=== PATIENT | female | born 1950 | race Caucasian/White ===

== ENCOUNTER 2018-06-21 11:37 | Observation (INO) | payer MEDICARE ==
[~2018-06-21] VITALS: Ht 172.7 cm; Wt 97.1 kg
--- NOTE | 2018-06-21 11:41 | ER Report ---
History and Physical Time Seen By MD: 11:41 HPI/ROS CHIEF COMPLAINT: Left hip pain HISTORY OF PRESENT ILLNESS: 68-year-old female patient presents to emergency room with complaint of left hip pain. 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 Patient states she landed on her left hip. Patient states she has significant amounts of pain. She states pain is worse with coughing or with movement. Patient denies any nausea, vomiting or diarrhea. She denies hitting her head or loss consciousness. Patient states that she has no numbness tingling to her lower leg. Patient states that she has not taken any medication for this. She states she was unable to get up and EMS was contacted which brought her here to the emergency room. REVIEW OF SYSTEMS: Respiratory: No cough, no dyspnea. Cardiovascular: No chest pain, no palpitations. Gastrointestinal: No vomiting, no abdominal pain. Musculoskeletal: As noted above Allergies: Coded Allergies: Penicillins (Verified Allergy, Severe, ANAPHYLAXIS, 06/21/18) acetaminophen (Verified Allergy, Severe, GAURAV, 06/21/18) hydrocodone (Verified Allergy, Severe, GAURAV, 06/21/18) Home Meds Reported Medications Multivitamin (MULTIVITAMINS) 1 Each Capsule, 1 EACH PO DAILY, CAPSULE 06/21/18 Past Medical/Surgical History Patient has a past medical history of chronic back pain. Patient has surgical history of appendectomy, hysterectomy. Reviewed Nurses Notes: Yes Constitutional Vital Sign - Last 24 Hours 06/21/18 06/21/18 06/21/18 06/21/18 11:38 11:38 11:42 11:47 Temp 98.0 Pulse 75 80 77 Resp 16 B/P (MAP) 109/84 109/84 (92) Pulse Ox 93 93 92 O2 Delivery Room Air 06/21/18 06/21/18 06/21/18 11:52 11:57 12:57 Pulse 77 75 72 Pulse Ox 91 91 Physical Exam General Appearance: The patient is alert, has no immediate need for airway protection and no current signs of toxicity. Respiratory: Chest is non tender, lungs are clear to auscultation. Cardiac: regular rate and rhythm Gastrointestinal: Abdomen is soft and non tender, no masses, bowel sounds normal. Musculoskeletal: Neck: Neck is supple and non tender. Extremities have full range of motion and are non tender. Patient had no obvious discomfort with palpation of the iliac crest, the left femur, or palpation of the left hip. Skin: No rashes or lesions. DIFFERENTIAL DIAGNOSIS: After history and physical exam differential diagnosis was considered for fracture, contusion, dislocation. Medical Decision Making Data Points Result Diagram: 06/21/18 1241 06/21/18 1241 Laboratory Hematology Test 06/21/18 12:41 06/21/18 12:53 Red Blood Count 4.90 M/uL (4.17-5.56) Mean Corpuscular Volume 93.6 fL (80.0-96.0) Mean Corpuscular Hemoglobin 31.2 pg (26.0-33.0) Mean Corpuscular Hemoglobin Concent 33.3 g/dL (32.0-36.0) Red Cell Distribution Width 13.0 % (11.5-14.5) Mean Platelet Volume 7.9 fL (7.2-11.1) Neutrophils (%) (Auto) 76.5 % (39.4-72.5) Lymphocytes (%) (Auto) 12.2 % (17.6-49.6) Monocytes (%) (Auto) 4.7 % (4.1-12.4) Eosinophils (%) (Auto) 6.1 % (0.4-6.7) Basophils (%) (Auto) 0.5 % (0.3-1.4) Nucleated RBC Relative Count (auto) 0.0 /100WBC Neutrophils # (Auto) 11.4 K/uL (2.0-7.4) Lymphocytes # (Auto) 1.8 K/uL (1.3-3.6) Monocytes # (Auto) 0.7 K/uL (0.3-1.0) Eosinophils # (Auto) 0.9 K/uL (0.0-0.5) Basophils # (Auto) 0.1 K/uL (0.0-0.1) Nucleated RBC Absolute Count (auto) 0.00 K/uL Sodium Level 137 mmol/L (137-145) Potassium Level 4.2 mmol/L (3.5-5.0) Chloride Level 104 mmol/L (98-107) Carbon Dioxide Level 26 mmol/L (22-31) Blood Urea Nitrogen 15 mg/dl (7-18) Creatinine 0.70 mg/dl (0.52-1.04) Glomerular Filtration Rate Calc > 60.0 Random Glucose 88 mg/dl (75-110) Calcium Level 9.3 mg/dl (8.4-10.2) Total Bilirubin 0.6 mg/dl (0.2-1.3) Aspartate Amino Transf (AST/SGOT) 31 U/L (0-35) Alanine Aminotransferase (ALT/SGPT) 29 U/L (0-56) Alkaline Phosphatase 70 U/L (0-126) Total Protein 6.8 g/dl (6.3-8.2) Albumin 4.1 g/dl (3.5-5.0) Prothrombin Time 12.9 seconds (12.0-14.4) Prothromb Time International Ratio 0.97 Activated Partial Thromboplast Time 23 seconds (23-35) Chemistry Test 06/21/18 12:41 06/21/18 12:53 White Blood Count 14.9 k/uL (4.5-11.0) Red Blood Count 4.90 M/uL (4.17-5.56) Hemoglobin 15.3 g/dL (12.0-16.0) Hematocrit 45.9 % (34.0-47.0) Mean Corpuscular Volume 93.6 fL (80.0-96.0) Mean Corpuscular Hemoglobin 31.2 pg (26.0-33.0) Mean Corpuscular Hemoglobin Concent 33.3 g/dL (32.0-36.0) Red Cell Distribution Width 13.0 % (11.5-14.5) Platelet Count 308 K/uL (150-450) Mean Platelet Volume 7.9 fL (7.2-11.1) Neutrophils (%) (Auto) 76.5 % (39.4-72.5) Lymphocytes (%) (Auto) 12.2 % (17.6-49.6) Monocytes (%) (Auto) 4.7 % (4.1-12.4) Eosinophils (%) (Auto) 6.1 % (0.4-6.7) Basophils (%) (Auto) 0.5 % (0.3-1.4) Nucleated RBC Relative Count (auto) 0.0 /100WBC Neutrophils # (Auto) 11.4 K/uL (2.0-7.4) Lymphocytes # (Auto) 1.8 K/uL (1.3-3.6) Monocytes # (Auto) 0.7 K/uL (0.3-1.0) Eosinophils # (Auto) 0.9 K/uL (0.0-0.5) Basophils # (Auto) 0.1 K/uL (0.0-0.1) Nucleated RBC Absolute Count (auto) 0.00 K/uL Glomerular Filtration Rate Calc > 60.0 Calcium Level 9.3 mg/dl (8.4-10.2) Total Bilirubin 0.6 mg/dl (0.2-1.3) Aspartate Amino Transf (AST/SGOT) 31 U/L (0-35) Alanine Aminotransferase (ALT/SGPT) 29 U/L (0-56) Alkaline Phosphatase 70 U/L (0-126) Total Protein 6.8 g/dl (6.3-8.2) Albumin 4.1 g/dl (3.5-5.0) Prothrombin Time 12.9 seconds (12.0-14.4) Prothromb Time International Ratio 0.97 Activated Partial Thromboplast Time 23 seconds (23-35) Coagulation Test 06/21/18 12:53 Prothrombin Time 12.9 seconds Prothromb Time International Ratio 0.97 Activated Partial Thromboplast Time 23 seconds EKG/Imaging Imaging Exam type: CHEST SINGLE AP History: fall with pain Comparison: None. Findings: Patient is slumped over towards the right and slightly rotated. No definite evidence of pulmonary consolidation seen. No evidence of overt pulmonary edema or pleural effusions. The cardiac silhouette is normal in size. Mild prominence of the right cardiophrenic angle may represent a prominent epicardial fat pad IMPRESSION: 1. No acute cardiopulmonary process is seen Report Dictated By: Alma Yuan MD at 06/21/2018 1:27 PM Report E-Signed By: Alma Yuan MD at 06/21/2018 1:28 PM Exam type: HIP LEFT History: Fall with left hip pain Comparison: None. Findings: AP view the pelvis and crosstable lateral view of the left hip are submitted there is a fracture through the superior pubic ramus on the left and a fracture through the inferior pubic ramus on the left is suspected. No definite fracture of the left hip is seen on this limited study IMPRESSION: 1. Fracture to the superior pubic ramus on the left and probable fracture through the inferior pubic ramus on the left as well No definite left hip fracture seen Report Dictated By: Alma Yuan MD at 06/21/2018 1:28 PM Report E-Signed By: Alma Yuan MD at 06/21/2018 1:30 PM ED Course/Re-evaluation ED Course Patient was admitted to an exam room, history and physical were obtained. Differential diagnoses were considered. On examination lungs are clear, heart is regular, abdomen soft nontender. Patient had no obvious tenderness to the left hip, or the iliac crest. A pelvis x-ray was done. A CBC, CMP, chest x-ray were done. Lab results were unremarkable except for the patient did have an elevated white count with a left shift. X-ray did show a nondisplaced superior and inferior pubic ramus fracture on the left side. I discussed the findings with patient. I discussed the case with Dr. Abreu, orthopedic surgeon. He states that she can ambulate bearing is much weight on that leg she can tolerate. We did attempt to get the patient up to ambulate. She was unable to tolerate even getting up to her feet. I discussed the case with Dr. Martinez, [facility], who agreed to accept the patient for admission. Decision to Disposition Date: Jun 21, 2018 Decision to Disposition Time: 15:06 Depart Departure Latest Vital Signs Vital Signs Date Time Temp Pulse Resp B/P (MAP) Pulse Ox O2 Delivery O2 Flow Rate FiO2 06/21/18 12:57 72 91 06/21/18 11:38 109/84 (92) 06/21/18 11:38 98.0 16 Room Air Impression: Primary Impression: Pubic ramus fracture Condition: Condition Unchanged Disposition: Admitted from ER Problem Qualifiers Primary Impression: Pubic ramus fracture Encounter type: initial encounter Fracture type: closed Laterality: left Qualified Codes: S32.592A - Other specified fracture of left pubis, initial encounter for closed fracture KOBI SHAH Jun 21, 2018 11:41
[2018-06-21] MEDS ORDERED: MULT1CAP59 PO (11:48)
[2018-06-21 12:53] LABS: PLATELET COUNT, AUTOMATED 308 K/uL (150-450)
[2018-06-21 13:14] LABS: INR 0.97
--- NOTE | 2018-06-21 13:32 | RADIOLOGY IMAGING REPORT ---
[place] [facility] [place] NAME: Kesha Reyes : 1950 MR: [id number] V: [id number] EXAM DATE: [id number] ORDERING PHYSICIAN: KOBI SHAH TECHNOLOGIST: Location: [facility] [place] Patient: Kesha Reyes : 1950 Visit/Account:[id number] Date of Sevice: 06/21/2018 Exam type: CHEST SINGLE AP History: fall with pain Comparison: None. Findings: Patient is slumped over towards the right and slightly rotated. No definite evidence of pulmonary co nsolidation seen. No evidence of overt pulmonary edema or pleural effusions. The cardiac silhouette is normal in size. Mild prominence of the right cardiophrenic angle may represent a prominent epica rdial fat pad IMPRESSION: 1. No acute cardiopulmonary process is seen Report Dictated By: Alma Yuan MD at 06/21/2018 1:27 PM Report E-Signed By: Alma Yuan MD at 06/21/2018 1:28 PM WSN:[email or web address]
--- NOTE | 2018-06-21 13:35 | RADIOLOGY IMAGING REPORT ---
FACILITY: [facility] PATIENT NAME: Kesha Reyes : 1950 MR: [id number] V: [id number] EXAM DATE: ORDERING PHYSICIAN: KOBI SHAH TECHNOLOGIST: Location: [facility] Patient: Kesha Reyes : 1950 Visit/Account:[id number] Date of Sevice: 06/21/2018 Exam type: HIP LEFT History: Fall with left hip pain Comparison: None. Findings: AP view the pelvis and crosstable lateral view of the left hip are submitted there is a fracture thro ugh the superior pubic ramus on the left and a fracture through the inferior pubic ramus on the left is suspected. No definite fracture of the left hip is seen on this limited study IMPRESSION: 1. Fracture to the superior pubic ramus on the left and probable fracture through the inferior pubic ramus on the left as well No definite left hip fracture seen Report Dictated By: Alma Yuan MD at 06/21/2018 1:28 PM Report E-Signed By: Alma Yuan MD at 06/21/2018 1:30 PM WSN:[email or web address]
[2018-06-21] MEDS ORDERED: IBUPROFEN 800 MG TAB PO ONE (15:20)
[2018-06-21 15:49] VITALS: BP 157/85
--- NOTE | 2018-06-21 15:50 | History & Physical ---
History of Present Illness Chief Complaint left hip pain History of Present Illness 68-year-old female patient presented to emergency room with complaint of left hip pain. 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 Patient states she landed on her left hip. Patient states she has significant amounts of pain and is unable to ambulate. She was brought by ambulance to emergency room. She had x-ray, which showed fracture to pubic ramus. She was recommended for admission. History Home Meds Reported Medications Multivitamin (MULTIVITAMINS) 1 Each Capsule, 1 EACH PO DAILY, CAPSULE 06/21/18 Allergies: Coded Allergies: Penicillins (Verified Allergy, Severe, ANAPHYLAXIS, 06/21/18) acetaminophen (Verified Allergy, Severe, GAURAV, 06/21/18) hydrocodone (Verified Allergy, Severe, GAURAV, 06/21/18) Review of Systems All Systems Reviewed/Normal: Yes, Except as Noted Musculoskeletal: Pain (left hip pain) Exam Vital Signs Vital Signs Date Time Temp Pulse Resp B/P (MAP) Pulse Ox O2 Delivery O2 Flow Rate FiO2 06/21/18 12:57 72 91 06/21/18 11:38 109/84 (92) 06/21/18 11:38 98.0 16 Room Air General Appearance: Alert, Awake, No Acute Distress, Afebrile Neuro: No Gross deficits Cardiovascular: Regular Rate and Rhythm Respiratory: No Respiratory Distress, Clear to Auscultation GI: Abd Soft and Non-Tender Extremities: Warm, Perfused; No Edema Psych: Alert & Oriented X3, Appropriate Mood & Affect Medical Decision Making Data Points Result Diagram: 06/21/18 1241 06/21/18 1241 EKG / Imaging Imaging Exam type: CHEST SINGLE AP History: fall with pain Comparison: None. Findings: Patient is slumped over towards the right and slightly rotated. No definite evidence of pulmonary consolidation seen. No evidence of overt pulmonary edema or pleural effusions. The cardiac silhouette is normal in size. Mild prominence of the right cardiophrenic angle may represent a prominent epicardial fat pad IMPRESSION: 1. No acute cardiopulmonary process is seen Report Dictated By: Alma Yuan MD at 06/21/2018 1:27 PM Report E-Signed By: Alma Yuan MD at 06/21/2018 1:28 PM Exam type: HIP LEFT History: Fall with left hip pain Comparison: None. Findings: AP view the pelvis and crosstable lateral view of the left hip are submitted there is a fracture through the superior pubic ramus on the left and a fracture through the inferior pubic ramus on the left is suspected. No definite fracture of the left hip is seen on this limited study IMPRESSION: 1. Fracture to the superior pubic ramus on the left and probable fracture through the inferior pubic ramus on the left as well No definite left hip fracture seen Report Dictated By: Alma Yuan MD at 06/21/2018 1:28 PM Report E-Signed By: Alma Yuan MD at 06/21/2018 1:30 PM Assessment and Plan Problems: (1) Pubic ramus fracture Status: Acute Assessment & Plan: She presented with left hip pain. She has fracture to left superior ramus and probable fracture to the inferior pubic ramus. Ortho was consulted in the emergency department, and report this is a non-operable fracture. She requests to only be placed on Ibuprofen for pain. She will get PT/OT evaluation. Venous Thromboembolism Antithrombotics Is Pt On Any Antithrombotics?: Yes Exam Sepsis Risk: No Definite Risk Problem Qualifiers (1) Pubic ramus fracture: Encounter type: initial encounter Fracture type: closed Laterality: left Qualified Codes: S32.592A - Other specified fracture of left pubis, initial encounter for closed fracture SARAH CERON INSULATION [employer]ARD [employer] SAW OPERATOR Jun 21, 2018 15:49
[2018-06-21 19:35] VITALS: BP 136/89
[2018-06-21] MEDS: IBUPROFEN 800 MG TAB PO PRN (20:32)
[2018-06-22] MEDS: IBUPROFEN 800 MG TAB PO PRN ×3 (04:13→20:10)
[2018-06-22 06:54] VITALS: BP 92/52
[2018-06-22] MEDS: ENOXAPARIN 40 MG/0.4ML SYR SC SCH (08:20)
--- NOTE | 2018-06-22 09:44 | Hospitalist Progress Note ---
Subjective Progress Notes Subjective She was admitted with pubic ramus fracture. She had no acute events overnight. Patient Complains of: Cardiovascular: No: Chest Pain Respiratory: No: Shortness of Breath Physical Exam Vital Signs Date Time Temp Pulse Resp B/P (MAP) Pulse Ox O2 Delivery O2 Flow Rate FiO2 06/22/18 06:54 89 Room Air 06/22/18 06:54 98.4 71 20 92/52 (65) General Appearance: Alert, Awake, No Acute Distress, Afebrile Neuro: No Gross deficits Cardiovascular: Regular Rate and Rhythm Respiratory: No Respiratory Distress, Clear to Auscultation GI: Soft and Non-Tender Extremities: Warm, Perfused; No Edema Psych: Alert & Oriented X3, Appropriate Mood & Affect Result Diagram: 06/21/18 1241 06/21/18 1241 Assessment and Plan Problems: (1) Pubic ramus fracture Status: Acute Assessment & Plan: She presented with left hip pain. She has fracture to left superior ramus and probable fracture to the inferior pubic ramus. Ortho was consulted in the emergency department, and report this is a non-operable fracture. She can be WBAT. She requests to only be placed on Ibuprofen for pain. She will get PT/OT evaluation today. Exam Sepsis Risk: No Definite Risk Problem Qualifiers (1) Pubic ramus fracture: Encounter type: initial encounter Fracture type: closed Laterality: left Qualified Codes: S32.592A - Other specified fracture of left pubis, initial encounter for closed fracture SARAH CERONP Jun 22, 2018 09:44
[2018-06-22 10:50] VITALS: BP 108/62
[2018-06-22] MEDS: LIDOCAINE 5% PATCH TP SCH (11:10)
--- NOTE | 2018-06-22 13:18 | NUR ---
Physical Therapy Impression PT eval complete. Pt lives alone in a single level home with 3 stairs with rails to enter plus 1 platform step. Pt reports independence with functional mobility prior to pelvic fx. Currently Pt requires Mod A x2 for supine>sit, Max Ax2 for sit>supine, Max A x2 from an elevated bed to stand, and is unable to ambulate with use of a RW. Strongly recommend acute rehab as Pt is unable to perform any functional mobility without significant assistance. Physical Therapy Goals 1. Mod I bed mobility. 2. Mod I transfers. 3. Mod I gait x 50' with RW. 4. Ascend/descend 3 stairs SBA. 5. Ascend/descend 1 platform step SBA using RW. Patient's Goals
--- NOTE | 2018-06-22 13:20 | NUR ---
Occupational Therapy Impression Co-evaluation completed with PT. Pt. would benefit from OT services 5x/week to increase independence in ADL activities. OT recommends pt. d/c to ARU for further rehab as pt. resides alone. Occupational Therapy Goals 1. Pt. to perform dressing activities with Min A. 2. Pt. to perform showering activities with Min A. 3. Pt. to perform toileting activities with Min A. 4. Pt. to perform grooming activities with I. Patient's Goal
[2018-06-22 14:51] VITALS: BP 120/74
[2018-06-22 19:30] VITALS: BP 118/59
[2018-06-22] MEDS: PATCH REMOVAL 1 EA TP SCH (21:00)
[2018-06-23] MEDS: IBUPROFEN 800 MG TAB PO PRN (05:34)
--- NOTE | 2018-06-23 06:57 | Hospitalist Progress Note ---
Subjective Progress Notes Subjective No new complaints. Physical Exam Vital Signs Date Time Temp Pulse Resp B/P (MAP) Pulse Ox O2 Delivery O2 Flow Rate FiO2 06/23/18 03:23 92 06/23/18 03:21 16 06/22/18 23:31 Room Air 06/22/18 19:30 97.7 81 118/59 (78) Intake and Output 06/23/18 07:00 Intake Total 240 ml Balance 240 ml Intake Oral 240 ml # Voids 1 # Bowel Movements 1 General Appearance: Alert, Awake, No Acute Distress Cardiovascular: Regular Rate and Rhythm GI: Soft and Non-Tender Extremities: Warm, Perfused Psych: Appropriate Mood & Affect Result Diagram: 06/21/18 1241 06/21/18 1241 Assessment and Plan Problems: (1) Pubic ramus fracture Status: Acute Assessment & Plan: She presented with left hip pain. She has fracture to left superior ramus and probable fracture to the inferior pubic ramus. Ortho was consulted in the emergency department, and report this is a non-operable fracture. She can be WBAT. She requests to only be placed on Ibuprofen for pain. She is being treated by PT/OT. She continues to have pain. Time Spent on Plan of Care: < 30 min Exam Sepsis Risk: No Definite Risk Problem Qualifiers (1) Pubic ramus fracture: Encounter type: initial encounter Fracture type: closed Laterality: left Qualified Codes: S32.592A - Other specified fracture of left pubis, initial encounter for closed fracture JULIANA HARRIS MD Jun 23, 2018 06:57
[2018-06-23 07:10] VITALS: BP 96/53
[2018-06-23] MEDS: LIDOCAINE 5% PATCH TP SCH (08:23)
[2018-06-23] MEDS: ENOXAPARIN 40 MG/0.4ML SYR SC SCH (08:23)
--- NOTE | 2018-06-23 10:35 | NUR ---
Physical Therapy Impression Pt with improved tolerance to mobility today. Panda for bed mobility, HOB raised for supine to sit. Increased pain with movement of L) LE. PT instructed pt in STS transfer with EZ lift, pt required min-modA to rise to insurance claims clerk lift with good tolerance once up. Pt reported lightheadedness and BP was 67/45. PT assisted pt back to supine position, BP returned to WNL and RN notified. Rec Acute rehab at d/c d/t high level of assistance for all mobility. Physical Therapy Goals 1. Mod I bed mobility. 2. Mod I transfers. 3. Mod I gait x 50' with RW. 4. Ascend/descend 3 stairs SBA. 5. Ascend/descend 1 platform step SBA using RW. Patient's Goals
[2018-06-23 10:45] VITALS: BP 67/45
[2018-06-23 10:50] VITALS: BP 102/63
[2018-06-23] MEDS: KETOROLAC 30 MG/ML VIAL IVP PRN ×2 (13:39→19:29)
[2018-06-23 15:05] VITALS: BP 93/59
[2018-06-23 19:25] VITALS: BP 109/63
[2018-06-23] MEDS: PATCH REMOVAL 1 EA TP SCH (19:37)
[2018-06-23 23:09] VITALS: BP 117/62
[2018-06-24 02:40] VITALS: BP 98/61
[2018-06-24] MEDS: IBUPROFEN 800 MG TAB PO PRN ×2 (02:44→11:18)
[2018-06-24 06:58] VITALS: BP 111/67
[2018-06-24] MEDS ORDERED: IBUP800T37 PO (08:42)
[2018-06-24] MEDS ORDERED: LIDO700A19 TP (08:42)
[2018-06-24] MEDS ORDERED: ENOX40DI9 SC (08:42)
--- NOTE | 2018-06-24 08:50 | Hospitalist Depart ---
Discharge Summary Reason for Hosp/Final Diag: (1) Pubic ramus fracture Status: Acute Hospital Course & Plan: She presented with left hip pain. She was found to have fracture of the left superior ramus and probable fracture to the inferior pubic ramus. Orthopedics was consulted in the emergency department and reported this was a nonsurgical fracture. She can be weight bearing as tolerated. She requested to use only Ibuprofen for pain. She has also used topical lidocaine patches intermittently. She was evaluated/treated by PT/OT. They recommended she be transferred to an acute rehabilitation facility as she was requiring fairly intensive therapy. Her follow up will be pending her progress with rehab. Departure Weight (Pounds): 214 Result Diagram: 06/24/18 0512 06/21/18 1241 Item Value Date Time White Blood Count 14.9 k/uL H 06/21/18 1241 Hemoglobin 15.3 g/dL 06/21/18 1241 Hematocrit 45.9 % 06/21/18 1241 Platelet Count 308 K/uL 06/21/18 1241 Prothrombin Time 12.9 seconds 06/21/18 1253 Prothromb Time International Ratio 0.97 06/21/18 1253 Activated Partial Thromboplast Time 23 seconds 06/21/18 1253 Sodium Level 137 mmol/L 06/21/18 1241 Potassium Level 4.2 mmol/L 06/21/18 1241 Chloride Level 104 mmol/L 06/21/18 1241 Carbon Dioxide Level 26 mmol/L 06/21/18 1241 Blood Urea Nitrogen 15 mg/dl 06/21/18 1241 Creatinine 0.70 mg/dl 06/21/18 1241 Glomerular Filtration Rate Calc > 60.0 06/21/18 1241 Random Glucose 88 mg/dl 06/21/18 1241 Calcium Level 9.3 mg/dl 06/21/18 1241 Total Bilirubin 0.6 mg/dl 06/21/18 1241 Aspartate Amino Transf (AST/SGOT) 31 U/L 06/21/18 1241 Alanine Aminotransferase (ALT/SGPT) 29 U/L 06/21/18 1241 Alkaline Phosphatase 70 U/L 06/21/18 1241 Total Protein 6.8 g/dl 06/21/18 1241 Albumin 4.1 g/dl 06/21/18 1241 Imaging PATIENT NAME: Kesha Reyes : 1950 MR: [id number] V: [id number] EXAM DATE: [id number] ORDERING PHYSICIAN: KOBI SHAH TECHNOLOGIST: Location: [facility] - [place] Patient: Kesha Reyes : 1950 Visit/Account:[id number] Date of Sevice: 06/21/2018 Exam type: HIP LEFT History: Fall with left hip pain Comparison: None. Findings: AP view the pelvis and crosstable lateral view of the left hip are submitted there is a fracture through the superior pubic ramus on the left and a fracture through the inferior pubic ramus on the left is suspected. No definite fracture of the left hip is seen on this limited study IMPRESSION: 1. Fracture to the superior pubic ramus on the left and probable fracture through the inferior pubic ramus on the left as well No definite left hip fracture seen Report Dictated By: Alma Yuan MD at 06/21/2018 1:28 PM Report E-Signed By: Alma Yuan MD at 06/21/2018 1:30 PM WSN:[email or web address] PATIENT NAME: Kesha Reyes : 1950 MR: [id number] V: [id number] EXAM DATE: [id number] ORDERING PHYSICIAN: KOBI SHAH TECHNOLOGIST: Location: [facility] - [place] Patient: Kesha Reyes : 1950 Visit/Account:[id number] Date of Sevice: 06/21/2018 Exam type: CHEST SINGLE AP History: fall with pain Comparison: None. Findings: Patient is slumped over towards the right and slightly rotated. No definite evidence of pulmonary consolidation seen. No evidence of overt pulmonary edema or pleural effusions. The cardiac silhouette is normal in size. Mild prominence of the right cardiophrenic angle may represent a prominent epicardial fat pad IMPRESSION: 1. No acute cardiopulmonary process is seen Report Dictated By: Alma Yuan MD at 06/21/2018 1:27 PM Report E-Signed By: Alma Yuan MD at 06/21/2018 1:28 PM WSN:[email or web address] Condition: Improved Discharge: Rehab Facility PT/OT Follow Up For: PT For Strengthening, OT Evaluation and Treat Time Spent: > 30 min Discharge Instructions Home Meds Active Scripts Lidocaine (Lidocaine) 5 % Adh..patch, 1 EACH TP QDAY for 14 Days, #14 PATCH.24H 0 Refills Prov:LISSET HARRIS MD 06/24/18 Ibuprofen (IBUPROFEN) 800 Mg Tablet, 800 MG PO Q8H PRN for PAIN for 30 Days, #60 TAB 0 Refills Prov:LISSET HARRIS MD 06/24/18 Enoxaparin Sodium (ENOXAPARIN SODIUM) 40 Mg/0.4 Ml Disp.syrin, 40 MG SC Q24H for 30 Days, #30 SYR 0 Refills Prov:LISSET HARRIS MD 06/24/18 Reported Medications Multivitamin (MULTIVITAMINS) 1 Each Capsule, 1 EACH PO DAILY, CAPSULE 06/21/18 Diet: Regular Activity: As Tolerated (as outlined by PT/OT) Special Instructions: Copies to: DENIS ARORAP ; Venous Thromboembolism Antithrombotics Is Pt On Any Antithrombotics?: Yes Problem Qualifiers (1) Pubic ramus fracture: Encounter type: initial encounter Fracture type: closed Laterality: left Qualified Codes: S32.592A - Other specified fracture of left pubis, initial encounter for closed fracture LISSET HARRIS MD Jun 24, 2018 08:50
[2018-06-24] MEDS: ENOXAPARIN 40 MG/0.4ML SYR SC SCH (09:07)
[2018-06-24] MEDS: LIDOCAINE 5% PATCH TP SCH (09:07)
[2018-06-25] MEDS ORDERED: INFLUENZA VIRUS VAC 0.5ML SYR IM ONLY ONE (09:00)
--- NOTE | 2018-06-25 13:27 | NUR ---
OCCUPATIONAL THERAPY Dressing Assistance: Dressing Aid Required: Bathing Assistance: Bathing Equipment: Home Assessment: Non Completed Feeding Assistance: Feeding Specialized Equipment: Toilet Use: Verbalizes Needs: Yes Understands Precautions: Yes Cooperative: Yes Family Teaching: No Occupational Therapy Comment: Pt. to transfer to No CO. ARU for continued rehab.
== END 2018-06-24 08:43 ==
LOC: ER 12:08 → MED 15:09 → INTOOBSV 15:09
PROVIDERS: ADMIT Internal Medicine; ATTEND Internal Medicine
DX: S32.592A Other specified fracture of left pubis, initial encounter for closed fracture (principal); G89.29 Other chronic pain
CPT/HCPCS: 36415; 71045; 73502; 85014; 85018; 85025; 85610; 85730; 96372; 97162; 97166; 97530; 99284; A9270; G0378; J1650; J1885; 82040; 82247; 82310; 82374; 82435; 82565; 82947; 84075; 84132; 84155; 84295; 84450; 84460; 84520

== ENCOUNTER → 2018-06-21 | Outpatient (CLI) | payer MEDICARE ==
[~2018-06-21] MED LIST: ENOX40DI9 SC; IBUP800T37 PO; LIDO700A19 TP; MULT1CAP59 PO
== END ==
LOC: AMB 11:06
PROVIDERS: ATTEND Nurse Practitioner
DX: M25.552 Pain in left hip (principal); R10.9 Unspecified abdominal pain; W19.XXXA Unspecified fall, initial encounter
CPT/HCPCS: A0425; A0427

== ENCOUNTER → 2018-07-11 | Outpatient (CLI) | payer MEDICARE ==
--- NOTE | 2018-07-11 17:06 | RADIOLOGY IMAGING REPORT ---
FACILITY: [facility] PATIENT NAME: Kesah Reyes : 1950 MR: [id number] V: [id number] EXAM DATE: ORDERING PHYSICIAN: BUD MEADOWS TECHNOLOGIST: [place] [facility] [place] Patient: Kesha Reyes : 1950 Visit/Account:[id number] Date of Sevice: 07/11/2018 PELVIS COMPARISON: Left hip radiographs 06/21/2018. HISTORY: Left superior and inferior pubic rami fracture three weeks ago TECHNIQUE: One AP view of the pelvis FINDINGS: BONES: Subacute transverse fractures of the left superior and inferior pubic rami are noted. There is no visible callus or bony bridging. Based on this single view study, there is about a half bone s haft width of displacement of the superior pubic ramus fracture, new from previous. There is no sign ificant displacement of the inferior pubic ramus fracture, stable. No other fractures are identified in the pelvis or either hip. Lower lumbar spine degenerative changes, incompletely imaged. The pub ic symphysis is intact. SI JOINTS: Intact and unremarkable. SOFT TISSUES: Negative. No visible soft tissue swelling. EFFUSION: None suggested. OTHER: Negative. IMPRESSION: Subacute fractures of the left superior and inferior pubic rami. Mild displacement of the superior p ubic ramus fracture is new from previous. The left inferior pubic ramus fracture remains nondisplace d. Report Dictated By: Tony Jeffries at 07/11/2018 5:00 PM Report E-Signed By: Tony Jeffries at 07/11/2018 5:02 PM WSN:[id number]
== END ==
LOC: RAD 15:54
PROVIDERS: ATTEND Nurse Practitioner Family
DX: S32.592A Other specified fracture of left pubis, initial encounter for closed fracture (principal)
CPT/HCPCS: 72170

== ENCOUNTER 2018-07-13 09:07 | Outpatient (RCR) | payer MEDICARE ==
--- NOTE | 2018-07-13 14:28 | PT INITIAL EVALUATION ---
MEDICAL DIAGNOSIS: Pelvic Fracture TREATMENT DIAGNOSIS: Altered gait and balance, L rami pain DATE OF ONSET: 06/21/18 SUBJECTIVE: Kesha "Fabian Reyes presents to PT for L pelvic rami fracture with slight superior displacement. She tripped in her garage at home and landed on her L side. She's has help at home, but would like to return to driving, house work, glass art including lifting heavy boxes, shopping. Pain location is L rami, lateral hip and described as sore. Pain scale is 5 on a ten point pain scale. Pain is worse with standing, walking, L hip movement and better with rest. 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 ROM: L hip PROM 90 deg. flexion, IR 10 deg, ER 30 deg., ankles PROM DF 10 deg. Strength: R ankle 4-/5, L ankle 4+/5. L hip abductor 2-/5, pain limited, other proximal LE strength testing deferred due to rami displacement. Mobility: Uses UE's sit/stand, leans R. Difficulty bridging with mat mobility. Gait: RW, WBAT L LE, shorter L step length. TUG 26 seconds, an 87% impairment. Balance: Double limb support only. ASSESSMENT: Ashli Reyes presents with weakness, altered gait, balance after rami fracture. Short Term Goals/Patient's Goals One month: Ashli ambulates 300 to 400 feet with RW, WBAT, tolerates standing 5- 10 minutes cooking. Two Months: Ashli reports she's able to stand as tall as T9 kyphosis allows, exercises at [facility] 20-30 minutes with L hip pain 2/10. PLAN: Patient to be seen for Strengthening/condition, Ice/Heat, Range of Motion, Spinal Stabilization, Stretching, Neuromuscular Re-ed, Electrical Stim, Gait Trg/Balance Trg, Home Exercise Program 2x/week for 2 Months Thank you for this referral. If you have any questions, comments, or concerns about this report or plan, please contact me at . RAFAEL Lorenzana
== END 2018-07-13 18:11 | disposition home or self-care (01) ==
LOC: PT 09:07
PROVIDERS: ATTEND Nurse Practitioner Family
DX: Z47.89 Encounter for other orthopedic aftercare (principal); S32.512S Fracture of superior rim of left pubis, sequela
CPT/HCPCS: 97162